=== PATIENT | male | born 1995 | race Two or more races ===

== ENCOUNTER 2018-05-24 21:38 | Emergency (ER) | payer MEDICAID ==
[~2018-05-24] VITALS: Ht 172.7 cm; Wt 86.2 kg
[2018-05-24 21:56] VITALS: BP 130/64
[2018-05-24 22:24] LABS: Eosinophils # (auto) 0.1 uL; Mean Corpuscular Hgb Conc. 33.4 g/dL (32.0-36.0); Monocytes % (auto) 5.6 % (0.0-12.0)
[2018-05-24 22:25] LABS: Basophils # (auto) 0.1 uL; Basophils % (auto) 0.5 % (0.0-2.0); Eosinophils % (auto) 0.6 % (0.0-7.0); Hematocrit 52.9 % (41.0-53.0); Hemoglobin 17.7 g/dL (13.5-17.5); Lymphocytes # (auto) 1.6 uL; Lymphocytes % (auto) 10.7 % (10.0-50.0); Mean Corpuscular Hemoglobin 28.1 pg (28.0-32.0); Mean Corpuscular Volume 84.2 fL (80.0-100.0); Monocytes # (auto) 0.8 uL; Neutrophils # (auto) 12.5 uL; Neutrophils % (auto) 82.6 % (37.0-80.0); Nucleated Red Blood Cells % 0.3 %; Platelet Count (auto) 294 10^3/uL (140-450); Red Blood Cells 6.28 10^6/uL (4.5-5.90); Red Cell Distribution Width 12.7 % (11.8-14.3); White Blood Cell 15.2 10^3/uL (4.4-10.8)
[2018-05-24 22:32] LABS: Urine Bacteria FEW /hpf (None Seen); Urine Blood 2+ /uL (Negative); Urine Hyaline Cast FEW /lpf (0 - 2); Urine Mucus FEW (None Seen); Urine Specific Gravity 1.017 (1.001-1.035); Urine WBC 4 /hpf (0 - 3)
[2018-05-24 22:46] LABS: Albumin 4.1 g/dL (3.4-5.0); BUN/Creatinine Ratio 8.3; Calcium 8.8 mg/dL (8.5-10.1); Potassium 3.1 mmol/L (3.5-5.1)
[2018-05-24 22:49] LABS: Bilirubin, Total 0.6 mg/dL (0.2-1.0); Total Protein 8.5 g/dL (6.4-8.2)
[2018-05-24] MEDS ORDERED: TETANUS-DIPTH-ACEL PERTUSSIS 0.5ML SYRG IM ONE (23:45)
== END 2018-05-25 00:02 | disposition home or self-care (01) ==
LOC: ER 21:41
DX: S16.1XXA Strain of muscle, fascia and tendon at neck level, initial encounter (principal); S00.83XA Contusion of other part of head, initial encounter; S60.221A Contusion of right hand, initial encounter; S70.01XA Contusion of right hip, initial encounter; S70.02XA Contusion of left hip, initial encounter; S30.1XXA Contusion of abdominal wall, initial encounter; V49.49XA Driver injured in collision with other motor vehicles in traffic accident, initial encounter; Y93.89 Activity, other specified; Y99.8 Other external cause status; Y92.89 Other specified places as the place of occurrence of the external cause
CPT/HCPCS: 36415; 70450; 71250; 72125; 73130; 74176; 80053; 81001; 85025; 90471; 90715; 93005